=== PATIENT | male | born 1965 | race Caucasian/White ===

== ENCOUNTER 2020-11-09 08:52 | Emergency (ER) | payer OTHER, SELFPAY ==
[2020-11-09 08:57] VITALS: BP 113/64; PULSE 100; RESP 14; TEMP 36.6; O2SAT 96
[2020-11-09 09:18] LABS: Bilirubin Small (Negative); Blood Negative (Negative); Clarity Clear (Clear); Glucose Negative (Negative); Ketones 15 mg/dL (Negative); Leukocyte Esterase Negative (Negative); Nitrite Negative (Negative); Specific Gravity >= 1.030 (1.005-1.025); Urobilinogen 0.2 EU/dL (Up TO 0.2); pH 5.5 (5-8)
[2020-11-09 09:23] LABS: Abs Immature Grans 0.02 10^3/uL (0.0-0.06); Absolute Basophil Count 0.03 10^3/uL (0.0-0.2); Absolute Lymphocyte Count 0.53 10^3/uL (1.2-3.4); Absolute Monocyte Count 0.85 10^3/uL (0.1-0.8); Absolute Neutrophil Count 5.87 10^3/uL (1.2-6.7); Basophils % 0.4; HCT 47.7 % (40.0-50.0); HGB 16.4 g/dL (13.5-17.5); Immature Grans % 0.3; Lymphocytes % 7.3; MCH 30.8 pg (27.0-33.0); MCHC 34.4 % (32.0-36.0); MCV 89.7 fL (80-95); MPV 10.3 fL (8.0-11.0); Monocytes % 11.6; Neutrophils % 80.4; Nucleated RBC 0 %; Platelet Count 179 10^3/uL (130-400); RBC 5.32 10^6/uL (4.36-5.78); RDW 11.9 % (11.8-14.1); RDW-SD 38.8 fL
--- NOTE | 2020-11-09 09:26 | ED.GENADUL_ITS ---
Discharge Plan Disposition Patient Disposition: HOME Condition: Stable Discharge Details Clinical Impression: Febrile illness, Rt flank pain Primary Care Provider: Twyla Kilpatrick ED Provider: Jaspreet Gutierrez Home Meds and New Rx's Prescriptions: No Action No Known Home Meds RF: 0 Discharge Instructions Instructions: Fever in Adults (ED), Flank Pain (ED) Additional Instructions: Work-up in the ER has been unremarkable for obvious emergent process. At this time CT imaging of abdomen pelvis offered but declined, given your presentation I believe this to be reasonable. Both a tickborne panel and Covid testing are pending. I do recommend quarantining until your Covid test has resulted negative, likely in the next 24-72 hours. In the meantime rest, plenty of fluids, [id number] Tylenol and/or Motrin as directed for discomfort. Please watch for new or worsening symptoms and return to the ER for any concerns. Lastly, I would like you to contact your primary care provider later today or tomorrow to make them aware of your ongoing symptoms and need for outpatient reevaluation. Medical Decision Making This is a 55-year-old male, no significant past sickle history, presenting for 3-day history of fever, T-max 102.3 responding well to Tylenol. 2 days ago he developed right flank discomfort. Clinically he appears well, nontoxic. Denies any anterior abdominal pain, back pain, urinary symptoms, bowel symptoms, nausea, vomiting. I am unable to reproduce any discomfort upon palpation. Differential includes not excluded to appendicitis, pyelonephritis, renal stone, infected renal stone, cholecystitis, colitis, etc. He denies any chest pain, shortness of breath, cough, radiation of his pain into his groin, penis, testicles. Will obtain IV access, give IV fluids, CBC, CMP, lipase, urinalysis and reassess. Initial laboratory values do not reveal any obvious emergent process. Patient with glucose of 116, urine ketones 15, small bilirubin. I was called back into the room as patient and significant other had additional questions and concerns. They report now that he has had an intermittent headache over the past couple of days. Denies any head trauma, neck pain or stiffness, visual changes. [place] ticks on them, mostly climbing but they have noticed a couple that have embedded, but not engorged. They do not know the exact timeframe that they were embedded but did not believe it was a very long time as they typically check for ticks fairly frequently. We discussed that at this time he is afebrile. Laboratory values do not reveal any obvious emergent process. Given he has pain in his flank although I am unable to reproduce this, we could certainly proceed with CT imaging of the abdomen and pelvis for additional information. At this time patient defers any CT imaging and would like to take a more conservative approach, will treat with Tylenol and/or Motrin, rest, fluids. Will obtain a tickborne panel as well as a Covid swab for fever of unknown origin. No evidence of acute abdomen upon my evaluation. I believe this to be reasonable plan but they were given strict return precautions, otherwise will contact her primary care provider to discuss their ER visit, ongoing symptoms, and need for outpatient reevaluation. We discussed quarantining until the Covid swab returns negative likely in the next 1-3 days. Medical Records Medical records reviewed: Yes I reviewed the patient's medical records. Lab Data Lab results reviewed: Yes I reviewed the patient's lab results. Labs: Laboratory Tests Range/Units 11/09/20 11/09/20 11/09/20 09:05 09:05 09:05 WBC (4.4-10.8) 10^3/uL 7.30 RBC (4.36-5.78) 10^6/uL 5.32 Hgb (13.5-17.5) g/dL 16.4 Hct (40.0-50.0) % 47.7 MCV (80-95) fL 89.7 MCH (27.0-33.0) pg 30.8 MCHC (32.0-36.0) % 34.4 RDW (11.8-14.1) % 11.9 Plt Count (130-400) 10^3/uL 179 MPV (8.0-11.0) fL 10.3 Immature Gran % 0.3 Neutrophils % 80.4 Lymphocytes % 7.3 Monocytes % 11.6 Eosinophils % 0.0 Basophils % 0.4 Nucleated RBC % % 0 Absolute Neutrophils (1.2-6.7) 10^3/uL 5.87 Absolute Lymphocytes (1.2-3.4) 10^3/uL 0.53 L Absolute Monocytes (0.1-0.8) 10^3/uL 0.85 H Absolute Eosinophils (0.0-0.7) 10^3/uL 0.00 Absolute Basophils (0.0-0.2) 10^3/uL 0.03 Sodium (136-145) mmol/L 139 Potassium (3.5-5.1) mmol/L 4.3 Chloride (98-107) mmol/L 103 Carbon Dioxide (21.0-32.0) mmol/L 25.7 Anion Gap (3-11) mmol/L 10.3 BUN (7-18) mg/dL 16 Creatinine (0.70-1.30) mg/dL 1.3 Estimated GFR/1.73 m2 (mL/min/1.73m2) 56.90 Glucose (74-106) mg/dL 116 H Calcium (8.5-10.1) mg/dL 9.4 Total Bilirubin (0.2-1.0) mg/dL 0.6 AST (15-37) U/L 29 ALT (16-63) U/L 32 Alkaline Phosphatase (46-116) U/L 97 Total Protein (6.4-8.2) g/dL 7.7 Albumin (3.4-5.0) g/dL 3.8 Lipase (73-393) U/L Urine Color (Yellow) Yellow Urine Clarity (Clear) Clear Urine pH (5-8) 5.5 Ur Specific [place] (1.005-1.025) >= 1.030 H Urine Protein (Negative) mg/dL Trace H Urine Ketones (Negative) mg/dL 15 H Urine Blood (Negative) Negative Urine Nitrite (Negative) Negative Urine Bilirubin (Negative) Small H Urine Urobilinogen (Up TO 0.2) EU/dL 0.2 Ur Leukocyte Esterase (Negative) Negative Urine RBC (0-2) HPF 0-2 Urine WBC (0-5) HPF 0-2 Ur Epithelial Cells (Negative) HPF Rare Urine Crystals (Negative) HPF Negative Urine Bacteria (Negative) HPF Few Urine Casts (Negative) LPF Negative Urine Mucus (Negative) Heavy Urine Other (Negative) Rare renal Ur Culture Indicated? No Urine Glucose (Negative) mg/dL Negative Range/Units 11/09/20 09:05 WBC (4.4-10.8) 10^3/uL RBC (4.36-5.78) 10^6/uL Hgb (13.5-17.5) g/dL Hct (40.0-50.0) % MCV (80-95) fL MCH (27.0-33.0) pg MCHC (32.0-36.0) % RDW (11.8-14.1) % Plt Count (130-400) 10^3/uL MPV (8.0-11.0) fL Immature Gran % Neutrophils % Lymphocytes % Monocytes % Eosinophils % Basophils % Nucleated RBC % % Absolute Neutrophils (1.2-6.7) 10^3/uL Absolute Lymphocytes (1.2-3.4) 10^3/uL Absolute Monocytes (0.1-0.8) 10^3/uL Absolute Eosinophils (0.0-0.7) 10^3/uL Absolute Basophils (0.0-0.2) 10^3/uL Sodium (136-145) mmol/L Potassium (3.5-5.1) mmol/L Chloride (98-107) mmol/L Carbon Dioxide (21.0-32.0) mmol/L Anion Gap (3-11) mmol/L BUN (7-18) mg/dL Creatinine (0.70-1.30) mg/dL Estimated GFR/1.73 m2 (mL/min/1.73m2) Glucose (74-106) mg/dL Calcium (8.5-10.1) mg/dL Total Bilirubin (0.2-1.0) mg/dL AST (15-37) U/L ALT (16-63) U/L Alkaline Phosphatase (46-116) U/L Total Protein (6.4-8.2) g/dL Albumin (3.4-5.0) g/dL Lipase (73-393) U/L 155 Urine Color (Yellow) Urine Clarity (Clear) Urine pH (5-8) Ur Specific [place] (1.005-1.025) Urine Protein (Negative) mg/dL Urine Ketones (Negative) mg/dL Urine Blood (Negative) Urine Nitrite (Negative) Urine Bilirubin (Negative) Urine Urobilinogen (Up TO 0.2) EU/dL Ur Leukocyte Esterase (Negative) Urine RBC (0-2) HPF Urine WBC (0-5) HPF Ur Epithelial Cells (Negative) HPF Urine Crystals (Negative) HPF Urine Bacteria (Negative) HPF Urine Casts (Negative) LPF Urine Mucus (Negative) Urine Other (Negative) Ur Culture Indicated? Urine Glucose (Negative) mg/dL HPI General Mode of arrival: ambulatory . Date/Time Provider Initiated Documentation: 11/09/20 08:53 . Limitations to Documentation: no limitations . Information obtained by: patient and family . HPI Narrative: This is a 55-year-old gentleman, denies significant past medical history, presenting to the ER for right flank pain for the past 2 days, and a fever T-max 102.3 over the past 3 days. Patient reports the pain is constant, does not really radiate, nothing makes it worse or better. Currently is a dull ache. Patient has been taking Tylenol, last dose a little prior to arrival, which seems to be controlling the fever. He denies recent illness, sick contact, travel, or trauma. Denies headache, neck pain, chest pain, shortness of breath, anterior abdominal pain, nausea, vomiting, diarrhea, constipation, dysuria, hematuria, skin rash. He reports mild decreased appetite. Patient denies any radiation of his discomfort down to his groin, penile or testicle pain. He denies any previous abdominal surgeries. Related Data Home Medications Medication Instructions Recorded Confirmed Unknown [No Known Home Meds] 10/01/15 11/09/20 Allergies Allergy/AdvReac Type Severity Reaction Status Date / Time No Known Allergies Allergy Unverified 10/01/15 15:34 General Stated Complaint: FlankPain REAL: 3 Review of Systems Constitutional Constitutional: Reports fever(s) and Denies headache(s) ENT Ears, Nose, Mouth, and Throat: Denies headache(s) and Denies neck pain Cardiovascular Cardiovascular: Denies chest pain and Denies dyspnea Respiratory Respiratory: Denies cough and Denies dyspnea Gastrointestinal Gastrointestinal: Reports abdominal pain (Right flank pain), Denies constipation, Denies diarrhea, Denies nausea and Denies vomiting Genitourinary Genitourinary: Denies dysuria Musculoskeletal Musculoskeletal: Reports back pain (Described as right flank pain) and Denies neck pain Integumentary/Breasts Skin/Breast: Denies rash Neurologic Neurologic: Denies headache(s) [facility] Social History Smoking/Tobacco Use Status: Never Smoking risk assessment performed?: Yes Alcohol Intake: never Drug use: Never Do you feel safe at home: Yes Do you feel safe in your relationship?: Yes Exam Const General: cooperative, healthy appearing, comfortable and no acute distress Orientation: alert, awake and oriented x3 HENMT Head: normal to inspection, normocephalic and atraumatic Ears: hearing grossly normal bilaterally Face and sinus: normal facial exam Mouth: moist mucous membranes Throat: posterior oropharynx normal Eyes General: appearance normal, both eyes and all related structures Alignment and Position: alignment normal Periorbital: periorbital findings normal Eyelids: eyelids normal Conjunctivae: conjunctivae normal Sclera: sclerae normal Cornea: corneas normal Pupils: PERRL EOM: EOM intact bilaterally Direct ophthalmoscopy: normal light reflex Neck Neck: normal visual inspection, full ROM, no meningeal signs, trachea midline, supple and nontender Resp Effort & Inspection: normal respiratory effort and able to speak in complete sentences Auscultation: clear to auscultation bilaterally Cardio Rate: regular rate Rhythm: regular rhythm GI Palpation: soft, not firm, no guarding, no pulsatile masses and nontender Auscultation: normal bowel sounds Back/Spine/Pelvis Back: No back tenderness Skin General skin exam: no rashes or lesions noted Neuro General: patient alert, patient awake, moves all extremities and no focal motor deficits Cognition: normal cognition Speech: speech normal Gait: normal gait Sensory Exam: no sensory deficits noted Extrem General: normal to inspection, full ROM, capillary refill normal, no pedal edema and no calf tenderness Psych Appearance: grossly normal Mental Status: mental status grossly normal Course Vital Signs Vital signs: Vital Signs Temperature 36.6 C 11/09/20 08:57 Pulse 100 H 11/09/20 08:57 Respiratory Rate 14 11/09/20 08:57 Blood Pressure 113/64 11/09/20 08:57 Pulse Oximetry 96 11/09/20 08:57 Temperature 36.6 C 11/09/20 08:57 Pulse 100 H 11/09/20 08:57 Respiratory Rate 14 11/09/20 08:57 Respiratory Effort 11/09/20 09:04 Blood Pressure 113/64 11/09/20 08:57 Blood Pressure Position Sitting 11/09/20 08:57 Pulse Oximetry 96 11/09/20 08:57 Oxygen Delivery Method Room Air 11/09/20 08:57 Oxygen Flow Rate 0 11/09/20 08:57 Pain Level 6 11/09/20 08:57 Lab/Test Results Lab/Test Results: Laboratory Tests Range/Units 11/09/20 11/09/20 09:05 09:05 WBC (4.4-10.8) 10^3/uL 7.30 RBC (4.36-5.78) 10^6/uL 5.32 Hgb (13.5-17.5) g/dL 16.4 Hct (40.0-50.0) % 47.7 MCV (80-95) fL 89.7 MCH (27.0-33.0) pg 30.8 MCHC (32.0-36.0) % 34.4 RDW (11.8-14.1) % 11.9 Plt Count (130-400) 10^3/uL 179 MPV (8.0-11.0) fL 10.3 Immature Gran % 0.3 Neutrophils % 80.4 Lymphocytes % 7.3 Monocytes % 11.6 Eosinophils % 0.0 Basophils % 0.4 Nucleated RBC % % 0 Absolute Neutrophils (1.2-6.7) 10^3/uL 5.87 Absolute Lymphocytes (1.2-3.4) 10^3/uL 0.53 L Absolute Monocytes (0.1-0.8) 10^3/uL 0.85 H Absolute Eosinophils (0.0-0.7) 10^3/uL 0.00 Absolute Basophils (0.0-0.2) 10^3/uL 0.03 Urine Color (Yellow) Yellow Urine Clarity (Clear) Clear Urine pH (5-8) 5.5 Ur Specific [place] (1.005-1.025) >= 1.030 H Urine Protein (Negative) mg/dL Trace H Urine Ketones (Negative) mg/dL 15 H Urine Blood (Negative) Negative Urine Nitrite (Negative) Negative Urine Bilirubin (Negative) Small H Urine Urobilinogen (Up TO 0.2) EU/dL 0.2 Ur Leukocyte Esterase (Negative) Negative Urine Glucose (Negative) mg/dL Negative
[2020-11-09 09:29] LABS: Bacteria Few HPF (Negative); C & S Indicated? No; Casts Negative LPF (Negative); Crystals Negative HPF (Negative); Epithelial Cells Rare HPF (Negative); Mucus Heavy (Negative); Other Cells Rare Renal (Negative); RBC 0-2 HPF (0-2); WBC 0-2 HPF (0-5)
[2020-11-09 09:42] LABS: ALT 32 U/L (16-63); AST 29 U/L (15-37); Albumin 3.8 g/dL (3.4-5.0); Alkaline Phosphatase 97 U/L (46-116); Anion Gap 10.3 mmol/L (3-11); BUN 16 mg/dL (7-18); Bilirubin, Total 0.6 mg/dL (0.2-1.0); CO2 25.7 mmol/L (21.0-32.0); CREATININE 1.3 mg/dL (0.70-1.30); Calcium 9.4 mg/dL (8.5-10.1); Chloride 103 mmol/L (98-107); Glucose 116 mg/dL (74-106); Potassium 4.3 mmol/L (3.5-5.1); Sodium 139 mmol/L (136-145); Total Protein 7.7 g/dL (6.4-8.2)
[2020-11-09] MEDS: Normal Saline 1,000 ML 1000 ML IV (09:45)
[2020-11-09 10:05] LABS: Lipase 155 U/L (73-393)
[2020-11-09 11:08] VITALS: BP 106/68; PULSE 86; RESP 16; TEMP 37.2; O2SAT 96
[2020-11-10 11:24] LABS: Lyme Ab w Rflx to Lyme Confirm Negative (Negative)
[2020-11-10 14:12] LABS: COVID-19 RT-PCR UVMMC Result Negative (Negative)
[2020-11-10 22:43] LABS: Anaplasma phagocytophilum Negative (Negative); B. miyamotoi PCR Negative (Negative); Babesia divergens/MO-1 Negative (Negative); Babesia duncani Negative (Negative); Babesia microti Negative (Negative); Ehrlichia chaffeensis Negative (Negative); Ehrlichia ewingii/canis Negative (Negative); Ehrlichia muris eauclairensis Negative (Negative)
== END 2020-11-09 11:21 | disposition home or self-care (01) ==
PROVIDERS: Emergency Provider Physician Assistant; PCP Nurse Practitioner Family
DX: R50.9 Fever, unspecified (principal); R10.11 Right upper quadrant pain; Z20.822 Contact with and (suspected) exposure to COVID-19; Z03.818 Encounter for observation for suspected exposure to other biological agents ruled out
CPT/HCPCS: 36415; 80053; 83690; 87798; 96360; 99284; U0003; 81003; 81015; 85025; 86618; 99283

== ENCOUNTER 2022-05-05 09:38 | Emergency (ER) | payer BC, SELFPAY ==
[2022-05-05 09:45] VITALS: BP 126/78; PULSE 90; RESP 18; TEMP 37; O2SAT 94
--- NOTE | 2022-05-05 09:45 | RT.EKG_ITS ---
APPROVED REPORT Exam: Resting ECG Reason for Exam: difficulty swallowing Patient Location: E HR:102 bpm ECG Measurements Heart Rate [address] 130 P 72 QRSd 75 QRS 44 QT 332 T 26 QTc 424 Conclusion Sinus rhythm...normal P axis, V-rate 60- 99 Atrial premature complexes in couplets...pair SV complexes w/ short R-R Probable left atrial enlargement...P >50mS, <-0.10mV V1
--- NOTE | 2022-05-05 10:20 | ED.GENADUL_ITS ---
Discharge Plan Disposition Patient Disposition: Home Condition: Stable Discharge Details Chief Complaint: GenMedical Clinical Impression: COVID Primary Care Provider: Twyla Kilpatrick ED Provider: Jaspreet Gutierrez Home Meds and New Rx's Prescriptions: No Action No Known Home Meds Discharge Instructions Instructions: COVID-19 (Coronavirus Disease 2019) (ED) Additional Instructions: Paxlovid as directed. Plenty of fluids to avoid dehydration. OTC medications as directed for symptomatic control. Please watch for new/worsening symptoms and return to the ER for any concerns. Contact your PCP to make them aware of your ER visit, symptoms, and need for outpatient follow up. Medical Decision Making 57-year-old gentleman who has had 1 COVID-vaccine, non-smoker, denies past medical history, presents with flulike symptoms over the past 48 hours, tested positive for COVID yesterday. Has not taken any [id number]-[id number] medication for his symptoms. Patient reports difficulty swallowing, sore throat, concern for dehydration. Clinically he appears well, nontoxic. Plan to provide IV fluid and Toradol. He would like to move forward with an antiviral for COVID if positive. Will obtain routine screening laboratory values. Will obtain POC COVID and flu as well as rapid strep. Lungs clear to auscultation. O2 sat is 94% on room air. Low suspicion for superimposed pneumonia, will not pursue chest x-ray at this time Rapid strep negative. Flu negative COVID positive CBC and CMP unremarkable for any obvious emergent process. Will initiate Paxlovid. Patient able to tolerate p.o. intake here in the ER without difficulty. Standard discharge and return precautions were provided. Patient understands, is agreeable to this plan, and has no additional questions or concerns upon discharge. This documentation was generated using [employer] system, please disregard any oddities of phrase or misspellings. Medical Records Medical records reviewed: Yes I reviewed the patient's medical records. Lab Data Lab results reviewed: Yes I reviewed the patient's lab results. Labs: 05/05/22 11:02 Tonsil - Not Specified Group A Streptococcus Culture - Pend ing Laboratory Tests Range/Units 05/05/22 05/05/22 10:56 10:59 WBC (4.4-10.8) 10^3/uL 10.21 RBC (4.36-5.78) 10^6/uL 4.72 Hgb (13.5-17.5) g/dL 14.9 Hct (40.0-50.0) % 44.4 MCV (80-95) fL 94 MCH (27.0-33.0) pg 31.6 MCHC (32.0-36.0) % 33.6 RDW (11.8-14.1) % 12.2 Plt Count (130-400) 10^3/uL 173 MPV (8.0-11.0) fL 10.4 Immature Gran % 0.3 Neutrophils % 77.1 Lymphocytes % 10.1 Monocytes % 12.3 Eosinophils % 0.0 Basophils % 0.2 Nucleated RBC % (0.0-0.3) % 0.0 Absolute Neutrophils (1.2-6.7) 10^3/uL 7.87 H Absolute Lymphocytes (1.2-3.4) 10^3/uL 1.03 L Absolute Monocytes (0.1-0.8) 10^3/uL 1.26 H Absolute Eosinophils (0.0-0.7) 10^3/uL 0.00 Absolute Basophils (0.0-0.2) 10^3/uL 0.02 Sodium (136-145) mmol/L 137 Potassium (3.5-5.1) mmol/L 4.2 Chloride (98-107) mmol/L 100 Carbon Dioxide (21.0-32.0) mmol/L 31.1 Anion Gap (3-11) mmol/L 5.9 BUN (7-18) mg/dL 18 Creatinine (0.70-1.30) mg/dL 1.3 Est GFR (CKD-EPI 2020) (mL/min/1.73m2) 63.28 Glucose (74-106) mg/dL 106 Calcium (8.5-10.1) mg/dL 8.5 Total Bilirubin (0.2-1.0) mg/dL 0.4 AST (15-37) U/L 24 ALT (16-63) U/L 20 Alkaline Phosphatase (46-116) U/L 82 Total Protein (6.4-8.2) g/dL 7.1 Albumin (3.4-5.0) g/dL 3.5 ECG Data Attestation: I personally reviewed and interpreted this ECG (s) as follows: Interpretation: Sinus Tach, vent rate of 102. No Stemi HPI General Mode of arrival: ambulatory . Date/Time Provider Initiated Documentation: 05/05/22 10:15 . Limitations to Documentation: no limitations . Information obtained by: patient . HPI Narrative: 57-year-old gentleman, non-smoker, denies significant past medical history, has had 1 vaccine against COVID, presents for 2-day history of body aches, subjective fever, sore throat, productive cough, chest tightness, tested positive for COVID yesterday. He has not taken any nnvq-buc-rwhycab medications for his symptoms. He reports decreased p.o. intake and concern for dehydration. Denies ear pain, chest pain, shortness of breath, abdominal pain, vomiting, dysuria, diarrhea, skin rash. Related Data Home Medications Medication Instructions Recorded Confirmed Unknown [No Known Home Meds] 10/01/15 05/05/22 Allergies Allergy/AdvReac Type Severity Reaction Status Date / Time No Known Allergies Allergy Unverified 05/05/22 09:48 General Stated Complaint: GenMedical REAL: 3 Review of Systems Constitutional Constitutional: Reports fever(s), Reports headache(s) and Reports weakness (Generalized) ENT Ears, Nose, Mouth, and Throat: Reports headache(s) and Reports sore throat Cardiovascular Cardiovascular: Denies chest pain and Denies dyspnea Respiratory Respiratory: Reports cough and Denies dyspnea Gastrointestinal Gastrointestinal: Denies abdominal pain, Denies nausea and Denies vomiting Musculoskeletal Musculoskeletal: Reports myalgias Integumentary/Breasts Skin/Breast: Denies rash Neurologic Neurologic: Reports headache(s) and Reports weakness (Generalized) PFSH All Active Problems (Updated 05/05/22 @ 12:10 by ROBERT Chavez) Febrile illness (Acute) Rt flank pain (Acute) COVID (Acute) Social History Smoking/Tobacco Use Status: Never Smoking risk assessment performed?: Yes Alcohol Intake: never Drug use: Never Do you feel safe at home: Yes Do you feel safe in your relationship?: Yes Exam Const General: cooperative, healthy appearing, comfortable and no acute distress Orientation: alert and awake [facility] Head: normal to inspection, normocephalic and atraumatic Ears: external ears normal, TM's normal bilaterally and EAC's normal General nose exam: external nose normal Face and sinus: normal facial exam Mouth: moist mucous membranes Throat: posterior oropharynx abnormal erythema (Mild) Eyes General: appearance normal, both eyes and all related structures Conjunctivae: conjunctivae normal Neck Neck: normal visual inspection, full ROM, no lymphadenopathy, no meningeal signs, trachea midline, supple and nontender Resp Effort & Inspection: normal respiratory effort, able to speak in complete sentences and cough Quality of cough: productive Auscultation: clear to auscultation bilaterally Cardio Rate: regular rate Rhythm: regular rhythm GI Palpation: soft and nontender Back/Spine/Pelvis Back: No back tenderness Skin General skin exam: no rashes or lesions noted Neuro General: patient alert, patient awake, moves all extremities and no focal motor deficits Sensory Exam: no sensory deficits noted Psych Appearance: grossly normal Mental Status: mental status grossly normal Course Vital Signs Vital signs: Vital Signs Temperature 37.0 C 05/05/22 09:45 Pulse 90 05/05/22 09:45 Respiratory Rate 18 05/05/22 09:45 Blood Pressure 126/78 05/05/22 09:45 Pulse Oximetry 94 05/05/22 09:45 Temperature 37.0 C 05/05/22 09:45 Temperature Source Temporal Artery Scan 05/05/22 09:45 Pulse 90 05/05/22 09:45 Respiratory Rate 18 05/05/22 09:45 Blood Pressure 126/78 05/05/22 09:45 Blood Pressure Position Supine 05/05/22 09:45 Pulse Oximetry 94 05/05/22 09:45 Oxygen Delivery Method Room Air 05/05/22 09:45 Oxygen Flow Rate 0 05/05/22 09:45
[2022-05-05] MEDS: Normal Saline 1,000 ML 1000 ML IV (11:00)
[2022-05-05] MEDS: Ketorolac 30 MG/ML VIAL IVP (11:00)
[2022-05-05 11:11] LABS: Abs Immature Grans 0.03 10^3/uL (0.0-0.06); Absolute Basophil Count 0.02 10^3/uL (0.0-0.2); Absolute Lymphocyte Count 1.03 10^3/uL (1.2-3.4); Absolute Monocyte Count 1.26 10^3/uL (0.1-0.8); Absolute Neutrophil Count 7.87 10^3/uL (1.2-6.7); Basophils % 0.2; HCT 44.4 % (40.0-50.0); HGB 14.9 g/dL (13.5-17.5); Immature Grans % 0.3; Lymphocytes % 10.1; MCH 31.6 pg (27.0-33.0); MCHC 33.6 % (32.0-36.0); MCV 94 fL (80-95); MPV 10.4 fL (8.0-11.0); Monocytes % 12.3; Neutrophils % 77.1; Platelet Count 173 10^3/uL (130-400); RBC 4.72 10^6/uL (4.36-5.78); RDW 12.2 % (11.8-14.1); RDW-SD 43.2 fL; WBC 10.21 10^3/uL (4.4-10.8)
[2022-05-05 11:35] LABS: ALT 20 U/L (16-63); AST 24 U/L (15-37); Albumin 3.5 g/dL (3.4-5.0); Alkaline Phosphatase 82 U/L (46-116); Anion Gap 5.9 mmol/L (3-11); BUN 18 mg/dL (7-18); Bilirubin, Total 0.4 mg/dL (0.2-1.0); CO2 31.1 mmol/L (21.0-32.0); CREATININE 1.3 mg/dL (0.70-1.30); Calcium 8.5 mg/dL (8.5-10.1); Chloride 100 mmol/L (98-107); Estimated GFR 63.28 (mL/min/1.73m2); Glucose 106 mg/dL (74-106); Potassium 4.2 mmol/L (3.5-5.1); Sodium 137 mmol/L (136-145); Total Protein 7.1 g/dL (6.4-8.2)
[2022-05-05 18:45] VITALS: RESP 18
== END 2022-05-05 12:35 | disposition home or self-care (01) ==
PROVIDERS: Emergency Provider Physician Assistant; PCP Nurse Practitioner Family
DX: U07.1 COVID-19 (principal)
CPT/HCPCS: 36415; 80053; 87880; 93005; 96361; 96374; 99285; 85025; 87081; 93010; 99284; J1885

== ENCOUNTER 2023-09-15 15:04 | Outpatient (REF) | payer BC, SELFPAY ==
[2023-09-18 11:23] LABS: Lyme Ab w Rflx to Lyme Confirm Negative (Negative)
[2023-09-18 16:06] LABS: Anaplasma phagocytophilum Negative (Negative); B. miyamotoi PCR Negative (Negative); Babesia divergens/MO-1 Negative (Negative); Babesia duncani Negative (Negative); Babesia microti Negative (Negative); Ehrlichia chaffeensis Negative (Negative); Ehrlichia ewingii/canis Negative (Negative); Ehrlichia muris eauclairensis Negative (Negative)
== END 2023-09-15 15:05 | disposition home or self-care (01) ==
LOC: NCHCN 15:04
PROVIDERS: PCP Nurse Practitioner Family; Visit Provider Nurse Practitioner Family
DX: M25.561 Pain in right knee (principal)
CPT/HCPCS: 87798; 86618

== ENCOUNTER 2023-09-20 18:02 | Outpatient (REF) | payer BC, SELFPAY ==
[2023-09-20 22:15] LABS: Abs Immature Grans 0.02 10^3/uL (0.0-0.06); Absolute Basophil Count 0.04 10^3/uL (0.0-0.2); Absolute Eosinophil Count 0.17 10^3/uL (0.0-0.7); Absolute Lymphocyte Count 1.75 10^3/uL (1.2-3.4); Absolute Monocyte Count 0.61 10^3/uL (0.1-0.8); Absolute Neutrophil Count 3.84 10^3/uL (1.2-6.7); Basophils % 0.6 %; Eosinophils % 2.6 %; HCT 43.9 % (40.0-50.0); HGB 15.2 g/dL (13.5-17.5); Immature Grans % 0.3 %; Lymphocytes % 27.2 %; MCH 31.4 pg (27.0-33.0); MCHC 34.6 % (32.0-36.0); MCV 91 fL (80-95); Monocytes % 9.5 %; Neutrophils % 59.8 %; Platelet Count 263 10^3/uL (130-400); RBC 4.84 10^6/uL (4.36-5.78); RDW 12.4 % (11.8-14.1); RDW-SD 41.3 fL; WBC 6.43 10^3/uL (4.4-10.8)
[2023-09-20 22:23] LABS: ESR 4 mm/hr (0-20)
[2023-09-20 22:26] LABS: ALT 27 U/L (16-63); AST 20 U/L (15-37); Alkaline Phosphatase 77 U/L (46-116); Anion Gap 10.4 mmol/L (3-11); BUN 16 mg/dL (7-18); Bilirubin, Total 0.4 mg/dL (0.2-1.0); CO2 26.6 mmol/L (21.0-32.0); CREATININE 1.1 mg/dL (0.70-1.30); Chloride 105 mmol/L (98-107); Estimated GFR 76.85 (mL/min/1.73m2); Glucose 95 mg/dL (74-106); Potassium 4.3 mmol/L (3.5-5.1); Sodium 142 mmol/L (136-145); Total Protein 7.1 g/dL (6.4-8.2)
[2023-09-20 22:27] LABS: C-Reactive Protein < 0.50 mg/dL (<or=0.5)
[2023-09-21 18:06] LABS: Rheumatoid Factor <8.6 IU/mL (<12.0)
[2023-09-22 15:02] LABS: ANA Interpretation Negative (Negative)
== END 2023-09-20 18:03 | disposition home or self-care (01) ==
LOC: NCHCN 18:02
PROVIDERS: PCP Nurse Practitioner Family; Visit Provider Family Medicine
DX: M25.59 Pain in other specified joint (principal)
CPT/HCPCS: 80053; 85652; 85025; 86038; 86140; 86431

== ENCOUNTER 2023-10-23 13:24 | Outpatient (CLI) | payer BC, SELFPAY ==
--- NOTE | 2023-10-23 13:15 | DI.RAD_ITS ---
Exam(s) XR KNEE RT 4V AP,LAT,LAKEISHA,PAT EXAM: XR KNEE RT 4V AP,LAT,LAKEISHA,PAT CLINICAL HISTORY: R Knee Pain. TECHNIQUE: 2D digital imaging was performed of the right knee. Five views obtained. Merchant, AP, la teral and PA tunnel views were obtained. COMPARISON: No exams were available for comparison FINDINGS: BONES: No acute fracture is present. No bony destructive lesion is seen. JOINTS: The knee is normally aligned. There is a small joint effusion. There osseous densities seen in the posterior knee which are likely within the joint space. SOFT TISSUE: Normal. IMPRESSION: Small joint effusion. Three small density seen posteriorly which may reflect loose bodies within the joint. DATA REPOSITORY: RADIATION DOSE DELIVERED:
== END 2023-10-23 13:25 | disposition home or self-care (01) ==
LOC: DIORS 13:24
PROVIDERS: PCP Nurse Practitioner Family; Referring Provider Nurse Practitioner Family; Visit Provider Physician Assistant
DX: M25.561 Pain in right knee (principal)
CPT/HCPCS: 73564

== ENCOUNTER 2025-04-01 09:40 | Emergency (ER) | payer SELFPAY ==
[2025-04-01 09:45] VITALS: BP 166/103; PULSE 71; RESP 18; TEMP 36.7; O2SAT 96
--- NOTE | 2025-04-01 10:00 | DI.CT_ITS ---
Exam(s) CT HEAD CERVICAL SPINE WO EXAM: CT HEAD CERVICAL SPINE WO CLINICAL HISTORY: headstrike, neck pain. TECHNIQUE: Imaging Protocol: Axial computed tomography images with coronal and sagittal reformatted images were created and reviewed COMPARISON: No exams were available for comparison FINDINGS: BRAIN: There are no skull fractures nor fluid in the visualized paranasal sinuses. There is no evidence of intracranial hemorrhage, mass effect, or shift of midline structures. There are no extra-axial fluid collections. The ventricles are not enlarged or shifted and there is no blood within the ventricular system nor within the basal cisterns. CERVICAL SPINE: There is no evidence of fracture nor listhesis. No significant prevertebral soft tissue swelling. There is chronic disc space narrowing at C5-6 and C6-7 levels. Moderate facet arthropathy noted multiple levels on the left side; less so on the right side. There is no significant facet joint malalignment. No significant osseous lesions evident. IMPRESSION: No acute intracranial findings on this noninfused CT scan of the brain. No evidence of cervical spine fracture, malalignment, nor acute compromise of the cervical spinal canal. Chronic degenerative disc disease C5-6 and C6-7 levels as well as multi level left-sided facet arthropathy. Report called to ER 04/01/2025 at 11:12 a.m. RADIATION DOSE DELIVERED: 1,422.87mGy.cm Total DLP DATA REPOSITORY: All CT scans at this facility are submitted to the National Radiology Data Registry (NRDR) Dose Index Registry (DIR) with the [employer] ([employer]). RADIATION OPTIMIZATION: All CT scans at this facility use at least one of these dose optimization techniques: automated exposure control; mA and/or kV adjustment per patient size (includes targeted exams where dose is matched to clinical indication); or iterative reconstruction.
--- NOTE | 2025-04-01 11:00 | ED.GENADUL_ITS ---
Discharge Plan Disposition Patient Disposition: Home Condition: Stable Discharge Details Clinical Impression: Concussion syndrome Primary Care Provider: Twyla Kilpatrick ED Provider: Giovanni Florez Home Meds and New Rx's Prescriptions: No Action No Known Home Meds Discharge Instructions Instructions: Cervical Muscle Strain, Post-Concussion Syndrome ED Additional Instructions: You were seen in the emergency department for your neck pain and concussion syndrome, your imaging is negative for any acute abnormalities. Please use therapeutic dosing of Tylenol (acetamenophen) & Advil (ibuprofen) in an alternating fashion as follows: Take 1000mg of Tylenol every 6 hours without missing doses- that is 4 times per day. [place] in between the Tylenol dosings, take 400-600mg of Advil also on a 6 hour schedule, that is also 4 times per day. The daily maximum dosing of Tylenol is 4000mg, and the daily maximum dosing of Advil is 2400mg. This is safe to do for weeks. Please note that some common cold medications & prescription pain medications may contain acetamenophen and you need to read OTC drug labels and factor that in to maximum daily dosings. Perform as much brain rest activities as you can, give yourself frequent. Developing headaches Stand Alone Forms: Portal Information, Work Release Referrals: Twyla Kilpatrick [Primary Care Provider, Medicine] Discharge Data Discharge Date/Time-TO BE ENTERED AT DEPARTURE: 04/01/25 11:55 HPI General Date/Time Provider Initiated Documentation: 04/01/25 09:46 . HPI Narrative: 60 year-old male presents to ED today by POV/ambulating with a chief complaint of fall at work yesterday- was putting plow on truck, he fell back and hit his head without LOC. Quality described as headache, mild blurred vision, no radiation to amnesia around event, vomiting, slurred speech, profound lethargy, weakness. Severity is described as mild. Palliating factors include ibuprofen at 0300 this morning. Provoking factors include nothing specific. Patient not anticoagulated. Related Data Home Medications Medication Instructions Recorded Confirmed Unknown [No Known Home Meds] 10/01/15 1 06/01/24 Allergies Allergy/AdvReac Type Severity Reaction Status Date / Time No Known Allergies Allergy Unverified 04/01/25 09:50 General Stated Complaint: Nk/Back Pain REAL: 3 Review of Systems All systems reviewed & are unremarkable except as noted in HPI and below Exam Narrative Exam Narrative: GENERAL APPEARANCE: Well-nourished, non-toxic, awake and alert, atraumatic, no acute distress. SKIN: Warm, pink, dry, intact, without rashes/lesions/ulcerations. HEAD: Normocephalic, atraumatic- no Battles' sign, no raccoon eyes, normal hair distribution for gender/age. EYES: Normal conjunctiva, no exudates on lids/lashes. ENT: Nares patent, no circumoral cyanosis, no facial swelling, no hemotympanum bilaterally NECK: Supple, trachea midline, painless cervical ROM, mild midline tenderness upper C-spine without crepitus LUNGS/CHEST: Non-labored respirations, normal A/P diameter, symmetrical expansion, no chest wall deformity HEART (CV/PV): No peripheral edema, no JVD. ABDOMEN: Soft, non-distended, no guarding. MSK: Normal ROM, no swelling/deformity to bilateral UEs or LEs, moving all extremities without weakness, no cyanosis, spine midline without tenderness, nor mal curvature. NEURO: Mental Status AAOx4 - alert to person, place, time, events No facial droop, no forehead involvement. Motor: No focal weakness - strength 5/5 in bilateral UEs and LEs, proximal and distal, symmetric. Sensory: sensation intact to light touch globally. Gait normal: patient ambulated without ataxia into ED room. PSYCH: euthymic, cooperative, pleasant, appropriate speech Course Vital Signs Vital signs: Vital Signs Temperature 36.7 C 04/01/25 09:45 Pulse 71 04/01/25 09:45 Respiratory Rate 18 04/01/25 09:45 Blood Pressure 166/103 H 04/01/25 09:45 Pulse Oximetry 96 04/01/25 09:45 Temperature 36.7 C 04/01/25 09:45 Temperature Source Temporal Artery Scan 04/01/25 09:45 Pulse 71 04/01/25 09:45 Respiratory Rate 18 04/01/25 09:45 Blood Pressure 166/103 H 04/01/25 09:45 Blood Pressure Position Sitting 04/01/25 09:45 Pulse Oximetry 96 04/01/25 09:45 Oxygen Delivery Method Room Air 04/01/25 09:45 Oxygen Flow Rate 0 04/01/25 09:45 Pain Level 6 04/01/25 09:45 Medical Decision Making This dictation utilizes [id number] dictation software and may contain unedited grammatical errors. 60 year-old male presents to ED today by POV/ambulating with a chief complaint of fall at work yesterday- was putting plow on truck, he fell back and hit his head without LOC. Quality described as headache, mild blurred vision, no radiation to amnesia around event, vomiting, slurred speech, profound lethargy, weakness. Severity is described as mild. Palliating factors include ibuprofen at 0300 this morning. Provoking factors include nothing specific. Patients' medical history: Negative, otherwise healthy. Family and social history: Works at [employer] works de[employer]. Pertinent exam findings / vital signs include mild midline tenderness in the upper cervical spine, no scalp hematoma, no Rios sign, no periorbital ecchymosis, no hemotympanum bilaterally, neuro intact, benign cardiopulmonary exam, no slurred speech. Differential / pathologies of concern include concussion, unlikely ICH, consider vertebral injury. Diagnostic studies of: -CT Head & C-Spine - shows no acute fracture, no ICH. Interventions of: -1g PO Tylenol, 400mg PO ibuprofen. ED Course/Assessment/Plan: 60 y/o M presents with concussive symptoms after a fall with headstrike last night, no anticoagulation. Having mild blurred vision and no other red flags for head injury. Patient did want imaging to be re-assured and had neck pain so CT head & c-spine were performed, after patient was placed in C-collar. No acute findings. Counseled on common symptoms of concussion and taking adequate Tylenol/ibuprofen and strict return criteria. Findings not consistent with ICH, vertebral fracture, neuro compromise. Disposition of Concussion Syndrome. Patient verbalized understanding of the plan and return to ED criteria and engaged in shared decision making. Medical Records Medical records reviewed: Yes I reviewed the patient's medical records. Imaging Data Radiologic Study: Attestation: I personally reviewed and interpreted this imaging study as follows: Imaging: CT Scan Radiologist's impression: EXAM: CT HEAD CERVICAL SPINE WO CLINICAL HISTORY: headstrike, neck pain. TECHNIQUE: Imaging Protocol: Axial computed tomography images with coronal and sagittal reformatted images were created and reviewed COMPARISON: No exams were available for comparison FINDINGS: BRAIN: There are no skull fractures nor fluid in the visualized paranasal sinuses. There is no evidence of intracranial hemorrhage, mass effect, or shift of midline structures. There are no extra-axial fluid collections. The ventricles are not enlarged or shifted and there is no blood within the ventricular system nor within the basal cisterns. CERVICAL SPINE: There is no evidence of fracture nor listhesis. No significant prevertebral soft tissue swelling. There is chronic disc space narrowing at C5-6 and C6-7 levels. Moderate facet arthropathy noted multiple levels on the left side; less so on the right side. There is no significant facet joint malalignment. No significant osseous lesions evident. IMPRESSION: No acute intracranial findings on this noninfused CT scan of the brain. No evidence of cervical spine fracture, malalignment, nor acute compromise of the cervical spinal canal. Chronic degenerative disc disease C5-6 and C6-7 levels as well as multi level left-sided facet arthropathy. Report called to ER 04/01/2025 at 11:12 a.m. [facility] All Active Problems (Updated 04/01/25 @ 11:20 by ROBERT Valdez) Concussion syndrome (Acute) Internal derangement of right knee (Acute) COVID (Acute) Rt flank pain (Acute) Febrile illness (Acute) Social History Smoking/Tobacco Use Status: Never Smoking risk assessment performed?: Yes Alcohol Intake: never Drug use: Never Substance use type: does not use Do you feel safe at home: Yes Do you feel safe in your relationship?: Yes
[2025-04-01] MEDS: Acetaminophen 500 MG TAB 1000 MG PO (11:36)
[2025-04-01] MEDS: Ibuprofen 400 MG TAB PO (11:36)
[2025-04-01 11:54] VITALS: BP 144/97; PULSE 75; RESP 10; O2SAT 97
== END 2025-04-01 11:55 | disposition home or self-care (01) ==
LOC: ER 11:29
PROVIDERS: Emergency Provider Physician Assistant; PCP Nurse Practitioner Family
DX: S06.0XAA Concussion with loss of consciousness status unknown, initial encounter (principal); W19.XXXA Unspecified fall, initial encounter
CPT/HCPCS: 99283; 99284; 70450; 72125